=== PATIENT | female | born 1935 | race Caucasian/White ===

== ENCOUNTER 2020-08-28 16:59 | Emergency (ER) | payer MEDICARE, SELFPAY ==
[2020-08-28 17:10] VITALS: BP 144/56; PULSE 63; RESP 16; TEMP 36.1; O2SAT 99
[2020-08-28 17:20] VITALS: BP 144/56; PULSE 63; RESP 16; TEMP 36.1; O2SAT 99
--- NOTE | 2020-08-28 17:30 | ED.BACK ---
HPI - Back Pain/Injury General Chief Complaint: Back Pain/Injury Stated Complaint: Possible pulled muscle on left side of abdomen Time Seen by Provider: 08/28/20 17:30 Source: patient Mode of arrival: ambulatory Limitations: no limitations History of Present Illness HPI Narrative: Diana Uriostegui is an 85 yo female with a PMH of high cholesterol, HTN, fractured back, comes [facility] because of right-sided pain that she says is caused from watering her tillman with a watering can on Monday. She was carrying a watering can and bothered her large yard and the next morning was hardly able to get out of bed. She still is having pain in the same area that is under her arm and her along her right flank Related Data Home Medications Medication Instructions Recorded Confirmed aspirin [Aspir-81] 81 mg PO DAILY 08/28/20 08/28/20 atorvastatin 40 mg PO DAILY 08/28/20 08/28/20 lisinopril-hydrochlorothiazide 1 tablet PO DAILY 08/28/20 08/28/20 metoprolol succinate 50 mg PO DAILY 08/28/20 08/28/20 zolpidem 2.5 mg PO HS 08/28/20 08/28/20 Allergies Allergy/AdvReac Type Severity Reaction Status Date / Time Penicillins Allergy Unknown Rash Verified 08/28/20 17:18 Review of Systems Review of Systems: Narrative: CONSTITUTIONAL: Denies fever, chills, sweats. EYES: Denies visual changes, redness, discharge. ENT: Denies rhinorrhea, congestion, sore throat, otalgia. CARDIOVASCULAR: Denies chest pain, palpitations, edema. RESPIRATORY: Denies dyspnea, wheezing, cough GASTROINTESTINAL: Denies abdominal pain, nausea, vomiting, diarrhea. Right flank pain that is probably muscle strain due to increased activity GENITOURINARY: Denies dysuria, hematuria, abnormal discharge SKIN: Denies rash or itching. NEUROLOGIC: Denies numbness, or focal weakness. PSYCHIATRIC: Denies anxiety or depression. [facility] Past Medical History Medical History (Updated 08/28/20 @ 17:53 by Gabrielle Avelar CNP) Back fracture High cholesterol HTN (hypertension) Osteoporosis Social History Social History (Updated 08/28/20 @ 17:35 by Gabrielle Avelar CNP) Smoking status: Former smoker Alcohol intake: current Living arrangements: alone Comments At time of signature, I agree with nursing past medical, surgical, social and family history. There is no relevant family history pertinent to the presenting complaint. Blood pressure is elevated with patient has a diagnosis of hypertension and is in pain Exam Narrative: Exam Narrative: GENERAL: This is a well-nourished, well-developed patient, in mmoderate distress. HEAD: normocephalic, atraumatic. EYES: Sclera clear/white. Vision is grossly intact. EARS: External ears normal, Hearing grossly intact. NOSE: External nose normal without nasal discharge, nares without redness, no rhinorrhea. THROAT: Mucous membranes moist, NECK: Neck supple, CARDIOVASCULAR: Regular rate and rhythm without murmurs, gallops, or rubs. RESPIRATORY: Clear to auscultation. Breath sounds equal bilaterally. No wheezes, rales, or rhonchi. GASTROINTESTINAL: Abdomen soft, tender, R flank SKIN: warm, intact withchris jacksong le mae where she points to it being painful. NEURO: awake, alert, and oriented to person, place and time. There were no obvious focal neurologic abnormalities. Steady gait EXTREMITIES: Normal range of motion. BACK: Nontender without deformity Course Course Emergency Course: Patient comes with complaints of right flank pain after watering her yard on Monday but says the pain keeps increasing as days past On exam she appears to have a rash on her right lower rib cage matching the location of her pain Started on acyclovir as well as Jeff and baclofen (5 mg) Option to be careful with taking medication so as not to fall as she was recently diagnosed with osteoporosis and she cannot afford the medications treated Vital Signs Vital signs: Vital Signs Temperature 97 F L 08/28/20 17:10 Pulse Rate 63 08/28/20 17:
== END 2020-08-28 18:01 | disposition home or self-care (01) ==
PROVIDERS: Emergency Provider Nurse Practitioner
DX: R10.9 Unspecified abdominal pain (principal); R07.82 Intercostal pain; B02.9 Zoster without complications; Z87.891 Personal history of nicotine dependence; E78.00 Pure hypercholesterolemia, unspecified; I10 Essential (primary) hypertension; Z79.82 Long term (current) use of aspirin
CPT/HCPCS: 99213; G0463